=== PATIENT | female | born 1945 | race Two or more races ===

== ENCOUNTER 2017-07-23 10:34 | Inpatient (IN) | payer OTHER ==
[~2017-07-23] VITALS: Ht 154.9 cm; Wt 57.6 kg
[2017-07-23] MEDS ORDERED: DEXAMETHASONE1.5 MG PO (13:36)
[2017-07-23] MEDS ORDERED: PROTONIX40 M1 PO (13:40)
[2017-07-30] MEDS ORDERED: Intestinex CAP PO (15:22)
[2017-07-30] MEDS ORDERED: PANTOPRAZOLE SO40 MG PO (15:22)
[2017-07-30] MEDS ORDERED: OXYC1TAB9 PO (15:22)
== END 2017-07-30 16:16 | disposition home or self-care (01) | DRG 330 ==
LOC: ADM 11:00 → EDSTATUS 11:00 → SURH 07-27 05:45 → O/R 07-27 05:45 → SURH 07-27 10:00
PROVIDERS: Surgery
PROC: 07TC4ZZ Resection of Pelvis Lymphatic, Percutaneous Endoscopic Approach (ICD-10-PCS; 2017-07-27)
PROC: 0DTF4ZZ Resection of Right Large Intestine, Percutaneous Endoscopic Approach (ICD-10-PCS; principal; 2017-07-27 10:00)
DX: C18.4 Malignant neoplasm of transverse colon (principal); E27.3 Drug-induced adrenocortical insufficiency; R59.0 Localized enlarged lymph nodes; T38.0X5A Adverse effect of glucocorticoids and synthetic analogues, initial encounter

== ENCOUNTER 2020-09-22 07:50 | Outpatient (CLI) | payer OTHER ==
[~2020-09-22 07:50] MED LIST: DEXAMETHASONE1.5 MG PO; Intestinex CAP PO; OXYC1TAB9 PO; PANTOPRAZOLE SO40 MG PO; PROTONIX40 M1 PO
== END 2020-09-22 07:58 | disposition home or self-care (01) ==
LOC: LAB 07:50
PROVIDERS: ATTEND Orthopaedic Surgery
DX: E88.89 Other specified metabolic disorders (principal); M85.88 Other specified disorders of bone density and structure, other site; C18.4 Malignant neoplasm of transverse colon; E55.9 Vitamin D deficiency, unspecified; E21.2 Other hyperparathyroidism; M81.8 Other osteoporosis without current pathological fracture; E56.1 Deficiency of vitamin K; N18.2 Chronic kidney disease, stage 2 (mild); E11.51 Type 2 diabetes mellitus with diabetic peripheral angiopathy without gangrene; M85.89 Other specified disorders of bone density and structure, multiple sites; E44.1 Mild protein-calorie malnutrition; R92.1 Mammographic calcification found on diagnostic imaging of breast; R00.1 Bradycardia, unspecified; F39 Unspecified mood [affective] disorder; F15.20 Other stimulant dependence, uncomplicated; F41.1 Generalized anxiety disorder; M89.8X8 Other specified disorders of bone, other site; M06.4 Inflammatory polyarthropathy; R91.1 Solitary pulmonary nodule; Z68.23 Body mass index [BMI] 23.0-23.9, adult; M25.50 Pain in unspecified joint; Z12.11 Encounter for screening for malignant neoplasm of colon; I50.89 Other heart failure

== ENCOUNTER 2021-01-25 11:31 | Inpatient (IN) | payer OTHER ==
[~2021-01-25] VITALS: Ht 152.4 cm; Wt 57.2 kg
[2021-01-26] MEDS ORDERED: ULTRAM50 MG PO (09:13)
[2021-01-26] MEDS ORDERED: ADULT LOW DOSE81 M1 PO (09:14)
== END 2021-01-26 18:57 | disposition home or self-care (01) | DRG 494 ==
LOC: ER 11:31 → SURH 19:20
PROVIDERS: ADMIT Orthopaedic Surgery; ATTEND Orthopaedic Surgery
PROC: 0QSL04Z Reposition Right Tarsal with Internal Fixation Device, Open Approach (ICD-10-PCS; 2021-01-26)
PROC: 0QSJ04Z Reposition Right Fibula with Internal Fixation Device, Open Approach (ICD-10-PCS; principal; 2021-01-26 07:00)
DX: S82.841A Displaced bimalleolar fracture of right lower leg, initial encounter for closed fracture (principal); S92.101A Unspecified fracture of right talus, initial encounter for closed fracture; S93.431A Sprain of tibiofibular ligament of right ankle, initial encounter; W10.8XXA Fall (on) (from) other stairs and steps, initial encounter; Y93.89 Activity, other specified; Y92.018 Other place in single-family (private) house as the place of occurrence of the external cause; Y99.8 Other external cause status; Z20.822 Contact with and (suspected) exposure to COVID-19

== ENCOUNTER 2021-03-06 08:44 | Outpatient (CLI) | payer OTHER ==
[~2021-03-06 08:44] MED LIST changes: +ADULT LOW DOSE81 M1 PO; +ULTRAM50 MG PO
== END 2021-03-06 08:51 | disposition home or self-care (01) ==
LOC: RAD 08:44
PROVIDERS: ATTEND Orthopaedic Surgery
DX: M25.571 Pain in right ankle and joints of right foot (principal)

== ENCOUNTER 2021-04-05 08:41 | Outpatient (CLI) | payer OTHER | END 2021-04-05 08:49 | disposition home or self-care (01) | LOC: RAD 08:41 | PROVIDERS: ATTEND Orthopaedic Surgery | DX: M80.0 Age-related osteoporosis with current pathological fracture (principal); S82.841D Displaced bimalleolar fracture of right lower leg, subsequent encounter for closed fracture with routine healing ==

== ENCOUNTER 2022-03-29 08:07 | Outpatient (CLI) | payer OTHER | END 2022-03-29 08:08 | disposition home or self-care (01) | LOC: LAB 08:07 | PROVIDERS: ATTEND Orthopaedic Surgery | DX: E55.9 Vitamin D deficiency, unspecified (principal); M85.9 Disorder of bone density and structure, unspecified; E56.1 Deficiency of vitamin K ==

== ENCOUNTER → 2022-08-11 10:47 | Outpatient (CLI) | payer OTHER ==
[~2022-08-11] VITALS: Ht 152.4 cm; Wt 55.3 kg
== END | disposition home or self-care (01) ==
LOC: LAB 10:47
PROVIDERS: ATTEND Orthopaedic Surgery
DX: D64.9 Anemia, unspecified (principal); E88.9 Metabolic disorder, unspecified; D68.8 Other specified coagulation defects; N39.0 Urinary tract infection, site not specified; A49.02 Methicillin resistant Staphylococcus aureus infection, unspecified site; Z76.89 Persons encountering health services in other specified circumstances; I49.9 Cardiac arrhythmia, unspecified; I10 Essential (primary) hypertension

== ENCOUNTER 2022-11-27 09:03 | Outpatient (CLI) | payer OTHER | END 2022-11-27 09:07 | disposition home or self-care (01) | LOC: RAD 09:03 | PROVIDERS: ATTEND Orthopaedic Surgery | DX: M79.671 Pain in right foot (principal); Z98.1 Arthrodesis status ==

== ENCOUNTER 2023-01-15 08:04 | Outpatient (CLI) | payer OTHER | END 2023-01-15 08:11 | disposition home or self-care (01) | LOC: RAD 08:04 | PROVIDERS: ATTEND Orthopaedic Surgery | DX: M79.671 Pain in right foot (principal); Z98.1 Arthrodesis status ==

== ENCOUNTER 2023-04-09 07:43 | Outpatient (CLI) | payer OTHER | END 2023-04-09 07:46 | disposition home or self-care (01) | LOC: RAD 07:43 | PROVIDERS: ATTEND Orthopaedic Surgery | DX: M79.671 Pain in right foot (principal); Z98.1 Arthrodesis status ==

== ENCOUNTER 2023-06-27 08:00 | Outpatient (CLI) | payer OTHER ==
[2023-06-27 10:30] LABS: ALBUMIN 4.1 gm/dL (3.4-5.0); BILIRUBIN TOTAL 0.47 mg/dL (0.3-1.2); CALCIUM 9.4 mg/dL (8.5-10.1); CREATININE SERUM 0.49 mg/dL (0.55-1.02); GFR 122.14; GLOBULINA 3.2 G/DL (2.4-3.5); MAGNESIUM 2.4 mg/dL (1.8-2.4); PHOSPHOROUS 3.3 mg/dL (2.5-4.9); POTASSIUM 4.4 mEq/L (3.5-5.1); TOTAL PROTEIN 7.3 gm/dL (6.4-8.2)
== END 2023-06-27 08:04 | disposition home or self-care (01) ==
LOC: LAB 08:00
PROVIDERS: ATTEND Orthopaedic Surgery
DX: M85.9 Disorder of bone density and structure, unspecified (principal); E83.42 Hypomagnesemia; E56.1 Deficiency of vitamin K

== ENCOUNTER 2023-09-16 07:33 | Outpatient (CLI) | payer OTHER | END 2023-09-16 07:36 | disposition home or self-care (01) | LOC: RAD 07:33 | PROVIDERS: ATTEND Orthopaedic Surgery | DX: M79.671 Pain in right foot (principal); Z98.1 Arthrodesis status ==